=== PATIENT | male | born 1975 | race Caucasian/White ===

== ENCOUNTER 2017-02-28 04:06 | Emergency (ER) | payer OTHER ==
[~2017-02-28] VITALS: Ht 177.8 cm; Wt 86.0 kg
[2017-02-28 04:11] VITALS: Ht 177.8 cm; Wt 86.0 kg
--- NOTE | 2017-02-28 06:49 | ERD ---
ER Documentation Chief Complaint Date/Time DATE: 02/28/17 TIME: 06:40 Chief Complaint abscess right gluteal area notice since last night HPI 41-year-old otherwise healthy male presents the emergency department with complaints of redness and pain surrounding the skin of the right gluteal area. Patient also notes erythema and swelling at the nailbed of the left index finger. Patient states symptoms began 4 days ago and have gradually worsened. Patient notes a current 5 out of 10 constant sharp pain worse with pressure to the area. Patient states she has not attempted to treat his symptoms with any medication thus far. Patient states that he is attempted to soak and drain the purulent discharge from the fingernail but has been unsuccessful. Patient denies any fever or chills but notes he "did not feel well "last night. Patient denies any nausea, vomiting, abdominal pain, confusion, headache. Patient denies any history of IV drug use. ROS All systems reviewed and are negative except as per history of present illness. Medications Home Meds Active Scripts Trimethoprim-Sulfamethoxazole* (Bactrim*) 400-80 Mg Tab, 1 TAB PO BID, #20 TAB Prov:RACHEL LOBO PA-C 02/28/17 Cephalexin* (Keflex*) 500 Mg Capsule, 500 MG PO QID for 7 Days, CAP Prov:RACHEL LOBO PA-C 02/28/17 Ibuprofen* (Motrin*) 600 Mg Tab, 600 MG PO Q6, #30 TAB Prov:RACHEL LOBO PA-C 02/28/17 Hydrocodone/Acetaminophen ([place] 5-325 Tablet) 1 Each Tablet, 1 TAB PO Q6H Y for PAIN, #7 TAB Prov:RACHEL LOBO PA-C 02/28/17 Mupirocin* (Bactroban*) 2% -22 Gram Oint...g., 1 APPLIC TOP BID for 7 Days, EA Prov:RACHEL LOBO PA-C 02/28/17 Allergies Allergies: Coded Allergies: No Known Allergy (Unverified , 02/28/17) PMhx/Soc History of Surgery: Yes (gallbladder) Anesthesia Reaction: No Hx Miscellaneous Medical Probl: Yes (pancreatitis) Hx Alcohol Use: Yes (rarely) Hx Substance Use: Yes (marijuana occaisionally) Hx Tobacco Use: Yes (1/2 ppd) Smoking Status: Current every day smoker Physical Exam Vitals Vital Signs Date Time Temp Pulse Resp B/P Pulse Ox O2 Delivery O2 Flow Rate FiO2 02/28/17 04:11 100.3 105 20 132/73 98 Physical Exam Const: Well-developed, well-nourished, no acute distress Head: Atraumatic Eyes: Normal Conjunctiva ENT: Normal External Ears, Nose and Mouth. Neck: Full range of motion..~ No meningismus. Resp: Clear to auscultation bilaterally Cardio: Regular rate and rhythm, no murmurs Abd: Soft, non tender, non distended. Normal bowel sounds Skin: 4 cm area of induration and slight superficial erythema located on the right gluteal area. No drainage present. Slight tenderness to palpation. Marked erythema and mild swelling located on the left index nailbed with mild purulent drainage. 2 point discrimination present along radial and ulnar aspects of affected finger. Brisk capillary refill. Tissue warm and well perfused. No petechiae or rashes Back: No midline or flank tenderness Ext: No cyanosis, or edema Neur: Awake and alert Psych: Normal Mood and Affect Results 24 hrs Current Medications Medications (Trade) Dose Ordered Sig/Katie Route PRN Reason Start Time Stop Time Status Last Admin Dose Admin Acetaminophen (Tylenol Tab) 650 mg ONCE ONCE PO 02/28/17 07:00 02/28/17 07:01 DC 02/28/17 06:55 Procedures/MDM Abscess Incision and Drainage with irrigation by me: Location: Left index finger nailbed Anesthesia: none Technique: Aspirated with needle Packing: None Complications: Neurovascularly intact post procedure 48 hour wound check. Scar minimization instructions given. Patient's skin symptoms have stabilized while they have been evaluated in the department and are appropriate for outpatient care and work up. Exam and w/u not consistent w/ sepsis, deep space infection, or foreign body. Well-appearing otherwise healthy 41-year-old male presents to the emergency department complaining of redness and swelling of his skin at 2 different sites. Patient is nontoxic appearing and in no acute distress. Erythema and induration located along his gluteal area appears to be mild and there is no indication for incision and drainage at this time. Patient tolerated incision and drainage of perionychia of his index finger and was placed in simple dressing. Patient received Tylenol which lowered his initial temperature measured at 100.3F. Patient's blood pressure was normotensive. Heart rate rechecked prior to discharge and patient was non-tachycardic. At this time I have low suspicion for severe systemic infection, or sepsis. Patient denies any medical history. He will be placed on antibiotic therapy and instructed to return in 48 hours for wound check. Take Tylenol for fevers as needed. Based on patient's history of present illness and physical examination the decision was made to discharge. The patient was re-evaluated after ED treatment and stabilizing measures, and symptoms have improved. There is no evidence of life threatening injuries or illnesses at this time. On re-examination, patient resting in no distress, stable vital signs, reports feeling better and safe for discharge with outpatient follow up with PMD in 1-2 days. Patient given return precautions. Departure Diagnosis: Primary Impression: Abscess Additional Impressions: Paronychia Laterality: left Qualified Code: L03.012 - Paronychia, left Cellulitis Site of cellulitis: buttock Qualified Code: L03.317 - Cellulitis of buttock RACHEL LOBO PA-C Feb 28, 2017 06:49
[2017-02-28] MEDS ORDERED: ACETAMINOPHEN 325 MG TAB PO ONE (07:00)
[2017-02-28] MEDS ORDERED: BACTRIM PO (07:01)
[2017-02-28] MEDS ORDERED: IBUP-1542 PO (07:01)
[2017-02-28] MEDS ORDERED: HYDR-906 PO (07:01)
[2017-02-28] MEDS ORDERED: CEPH-443 PO (07:01)
[2017-02-28] MEDS ORDERED: MUPI22OI2 TOP (07:01)
== END 2017-02-28 07:12 | disposition home or self-care (01) ==
LOC: FTE 04:06
DX: L02.31 Cutaneous abscess of buttock (principal); L03.012 Cellulitis of left finger; L03.317 Cellulitis of buttock; F17.210 Nicotine dependence, cigarettes, uncomplicated
CPT/HCPCS: 20600; Z7610

== ENCOUNTER 2017-03-09 01:13 | Emergency (ER) | payer OTHER ==
[~2017-03-09] VITALS: Ht 185.4 cm; Wt 88.0 kg
[~2017-03-09 01:13] MED LIST: BACTRIM PO; CEPH-443 PO; HYDR-906 PO; IBUP-1542 PO; MUPI22OI2 TOP
[2017-03-09 01:37] VITALS: Ht 185.4 cm; Wt 88.0 kg
[2017-03-09] MEDS ORDERED: LIDOCAINE 1% (MDV) 20 ML INJ SC ONE (03:00)
[2017-03-09] MEDS ORDERED: HYDROCODONE/APAP (10/325) TAB PO ONE (05:00)
[2017-03-09] MEDS ORDERED: IBUP800T25 PO (05:01)
[2017-03-09] MEDS ORDERED: HYDR-902 PO (05:01)
[2017-03-09] MEDS ORDERED: CLIN-73 PO (05:01)
[2017-03-09 05:40] VITALS: BP 132/78; PULSE 88; RESP 20; TEMP 99
--- NOTE | 2017-03-09 05:43 | ERD ---
ER Documentation Chief Complaint Date/Time DATE: 03/09/17 TIME: 05:42 Chief Complaint Abscess to r cheek HPI 41-year-old male complaining of abscess on his right buttock times 9 days. Patient stated that he was seen here before, was given 2 antibiotics. He finished antibiotics. 2 days ago, he has noticed the area has become soft and squishy. Patient complaining of constant severe pain, as well as subjective fever. He took ibuprofen at home for pain, but did not help much. ROS All systems reviewed and are negative except as per history of present illness. Medications Home Meds Active Scripts Hydrocodone/Acetaminophen ([place] 10-325 Tablet) 1 Each Tablet, 1 TAB PO Q6H Y for SEVERE PAIN LEVEL 7-10, #7 TAB Prov:JAYME BURKS [facility] [employer] SERVICE WORKER 03/09/17 Ibuprofen* (Motrin*) 800 Mg Tab, 800 MG PO Q6H Y for PAIN AND OR ELEVATED TEMP, #30 TAB Prov:JAYME BURKS NP 03/09/17 Clindamycin Hcl* (Clindamycin Hcl*) 300 Mg Capsule, 300 MG PO TID for 10 Days, CAP Prov:JAYME BURKS [facility] [employer] SERVICE WORKER 03/09/17 Trimethoprim-Sulfamethoxazole* (Bactrim*) 400-80 Mg Tab, 1 TAB PO BID, #20 TAB Prov:RACHEL LOBO PA-C 02/28/17 Cephalexin* (Keflex*) 500 Mg Capsule, 500 MG PO QID for 7 Days, CAP Prov:RACHEL LOBO PA-C 02/28/17 Ibuprofen* (Motrin*) 600 Mg Tab, 600 MG PO Q6, #30 TAB Prov:RACHEL LOBOC 02/28/17 Hydrocodone/Acetaminophen ([place] 5-325 Tablet) 1 Each Tablet, 1 TAB PO Q6H Y for PAIN, #7 TAB Prov:RACHEL LOBO PA-C 02/28/17 Mupirocin* (Bactroban*) 2% -22 Gram Oint...g., 1 APPLIC TOP BID for 7 Days, EA Prov:RACHEL LOBO-C 02/28/17 Allergies Allergies: Coded Allergies: No Known Allergy (Unverified , 02/28/17) PMhx/Soc History of Surgery: Yes (gallbladder) Anesthesia Reaction: No Hx Miscellaneous Medical Probl: Yes (pancreatitis) Hx Alcohol Use: Yes (rarely) Hx Substance Use: Yes (marijuana occaisionally) Hx Tobacco Use: No (quit) Smoking Status: Former smoker Physical Exam Vitals Vital Signs Date Time Temp Pulse Resp B/P Pulse Ox O2 Delivery O2 Flow Rate FiO2 03/09/17 01:37 100.2 91 20 125/85 99 Physical Exam General impression: Well-developed, well-nourished. Alert, oriented, in no acute distress Head: Normocephalic, atraumatic. Eyes: PERRL, EOM normal. Sclerae are normal. Conjunctiva not injected. Neck: Supple, nontender. No lymphadenopathy. No nuchal rigidity. Respiration: Normal respiratory effort. Lungs clear to auscultate bilaterally. No wheezes, rales or rhonchi. Cardiovascular: Regular rate and rhythm. No murmurs or extra heart sounds. Abdomen: Abdomen normal to inspection. Nontender. No masses or organomegaly. Bowel sounds normal. Back: Normal to inspection. No midline spine tenderness. No CVA tenderness. Extremities: Extremities normal to inspection, nontender. ROM normal. Neuro: Mental status normal, speech normal. 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 Skin: Normal turgor. Approximately 20 x 60 cm area of induration wheeze irregular border noted on the right buttock, with large area of fluctuance. Tender to palpation. Psych: Normal mood and affect. Results 24 hrs Current Medications Medications (Trade) Dose Ordered Sig/Katie Route PRN Reason Start Time Stop Time Status Last Admin Dose Admin Lidocaine (Xylocaine 1% (Mdv) 20 ml) 20 ml ONCE ONCE SC 03/09/17 03:00 03/09/17 03:01 DC Acetaminophen/ Hydrocodone Bitart ([place] (10/325)) 1 tab ONCE ONCE PO 03/09/17 05:00 03/09/17 05:01 DC 03/09/17 04:38 Procedures/MDM Procedure note: Incision and Drainage Verbal consent obtained for incision and drainage of patient's abscess. The area was prepped with Betadine. Lidocaine 1% was infiltrated for local anesthesia. After appropriate anesthesia, incision was made using #11 blade. Approximately 500 cc of purulent drainage was removed from the abscess. The abscess was probed for loculation. It was then irrigated with 120 ml of NS solution. Iodoform 1/2" packing tape approximately 7 feet long was inserted into the abscess. The wound was then cleaned and dressed. Patient tolerated procedure well. Well-appearing 41-year-old male presented ED with large abscess on his right buttock. The abscess has grown in size since the previous visit 9 days ago. Patient had finished 1 course of Keflex and Bactrim DS as prescribed. I suspect the reason that the abscess had grown may be due to a combination of antibiotic resistance and patient did not seek timely care to drain the abscess. Patient had a low-grade fever in the ED, he is given [place] 10/325 for pain and fever. I will prescribe him a course of clindamycin, and have him return here 2 days for follow-up wound check. Patient appears well, stable for discharge and outpatient management. Medical decision making shared with patient and family. Education provided to patient and family. Patient and family expressed understanding of the plan. Medications on discharge: Ibuprofen, [place], clindamycin. Follow-up: Return to ED in 2 days for wound check and dressing change. Departure Diagnosis: Primary Impression: Abscess Condition: Good Patient Instructions: Abscess, Incision And Drainage Referrals: [facility] YOU HAVE RECEIVED A MEDICAL SCREENING EXAM AND THE RESULTS INDICATE THAT YOU DO NOT HAVE A CONDITION THAT REQUIRES URGENT TREATMENT IN THE EMERGENCY DEPARTMENT. FURTHER EVALUATION AND TREATMENT OF YOUR CONDITION CAN WAIT UNTIL YOU ARE SEEN IN YOUR DOCTORS OFFICE WITHIN THE NEXT 1-2 DAYS. IT IS YOUR RESPONSIBILITY TO MAKE AN APPOINTMENT FOR FOLOW-UP CARE. IF YOU HAVE A PRIMARY DOCTOR --you should call your primary doctor and schedule an appointment IF YOU DO NOT HAVE A PRIMARY DOCTOR YOU CAN CALL OUR PHYSICIAN REFERRAL HOTLINE AT IF YOU CAN NOT AFFORD TO SEE A PHYSICIAN YOU CAN CHOSE FROM THE FOLLOWING [facility] [address] [place] [facility] [address] [facility] [address] [facility] [address] [facility] [address] [facility]. [facility] [address] Additional Instructions: Return to this facility in 2 DAYS for a follow-up exam.Return sooner if your condition worsens. JAYME BURKS NP Mar 09, 2017 05:43
== END 2017-03-09 05:45 | disposition home or self-care (01) ==
LOC: FTE 01:13
DX: L02.31 Cutaneous abscess of buttock (principal); Z87.891 Personal history of nicotine dependence
CPT/HCPCS: 10061; Z7502; Z7610

== ENCOUNTER 2017-03-12 03:55 | Emergency (ER) | payer OTHER ==
[~2017-03-12] VITALS: Ht 182.9 cm; Wt 90.0 kg
[~2017-03-12 03:55] MED LIST changes: +CLIN-73 PO; +HYDR-902 PO; +IBUP800T25 PO
[2017-03-12 03:58] VITALS: Ht 182.9 cm; Wt 90.0 kg
[2017-03-12 06:48] VITALS: BP 119/88; PULSE 65; RESP 20
--- NOTE | 2017-03-12 07:48 | ERD ---
ER Documentation Chief Complaint Date/Time DATE: 03/12/17 TIME: 07:44 Chief Complaint wound check for abscess on left buttock HPI Patient is a 41-year-old male with no medical problems who presents with a right buttock abscess. He had incision and drainage performed recently. He has had this for about 1.5 weeks. He is taking antibiotics. He said that the area is painful and slightly hard around the area of the incision and drainage. He is not diabetic. He smokes occasionally. ROS All systems reviewed and are negative except as per history of present illness. Medications Home Meds Active Scripts Hydrocodone/Acetaminophen ([place] 10-325 Tablet) 1 Each Tablet, 1 TAB PO Q6H Y for SEVERE PAIN LEVEL 7-10, #7 TAB Prov:JAYME BURKS CUSTOMER CONTACT SALES ASSOCIATE 03/09/17 Ibuprofen* (Motrin*) 800 Mg Tab, 800 MG PO Q6H Y for PAIN AND OR ELEVATED TEMP, #30 TAB Prov:JAYME BURKS NP 03/09/17 Clindamycin Hcl* (Clindamycin Hcl*) 300 Mg Capsule, 300 MG PO TID for 10 Days, CAP Prov:JAYME BURKS NP 03/09/17 Trimethoprim-Sulfamethoxazole* (Bactrim*) 400-80 Mg Tab, 1 TAB PO BID, #20 TAB Prov:RACHEL LOBO PA-C 02/28/17 Cephalexin* (Keflex*) 500 Mg Capsule, 500 MG PO QID for 7 Days, CAP Prov:RACHEL LOBO-C 02/28/17 Ibuprofen* (Motrin*) 600 Mg Tab, 600 MG PO Q6, #30 TAB Prov:RACHEL LOBO PA-C 02/28/17 Hydrocodone/Acetaminophen ([place] 5-325 Tablet) 1 Each Tablet, 1 TAB PO Q6H Y for PAIN, #7 TAB Prov:RACHEL LOBO PA-C 02/28/17 Mupirocin* (Bactroban*) 2% -22 Gram Oint...g., 1 APPLIC TOP BID for 7 Days, EA Prov:RACHEL LOBO-C 02/28/17 Allergies Allergies: Coded Allergies: No Known Allergy (Unverified , 03/12/17) PMhx/Soc Medical and Surgical Hx: pt denies Medical Hx, pt denies Surgical Hx History of Surgery: Yes (gallbladder) Anesthesia Reaction: No Hx Miscellaneous Medical Probl: Yes (pancreatitis) Hx Alcohol Use: Yes (rarely) Hx Substance Use: Yes (marijuana occaisionally) Hx Tobacco Use: No (quit) Smoking Status: Never smoker FmHx Family History: No diabetes Physical Exam Vitals Vital Signs Date Time Temp Pulse Resp B/P Pulse Ox O2 Delivery O2 Flow Rate FiO2 03/12/17 06:48 65 20 119/88 98 Room Air 03/12/17 03:58 98.2 125 20 127/97 97 Physical Exam Const: No acute distress Head: Atraumatic Eyes: Normal Conjunctiva ENT: Normal External Ears, Nose and Mouth. Neck: Full range of motion..~ No meningismus. Resp: Clear to auscultation bilaterally Cardio: Regular rate and rhythm, no murmurs Abd: Soft, non tender, non distended. Normal bowel sounds Skin: Incision and drainage to the right buttock without signs of surrounding erythema at this time, mild induration Back: No midline or flank tenderness Ext: No cyanosis, or edema Neur: Awake and alert Psych: Normal Mood and Affect Procedures/MDM Packing was removed at the bedside. Patient is a 41-year-old male presents for a wound check. I removed the packing. The patient is well-appearing otherwise. I doubt systemic infection. He is afebrile. The patient will be discharged home and can return for any worsening symptoms. I believe outpatient management at this time. The patient will need to follow-up with a primary doctor within 1 week and can return if symptoms worsen. Departure Diagnosis: Primary Impression: Encounter for wound re-check Condition: Fair Patient Instructions: Wound Care Referrals: [facility] YOU HAVE RECEIVED A MEDICAL SCREENING EXAM AND THE RESULTS INDICATE THAT YOU DO NOT HAVE A CONDITION THAT REQUIRES URGENT TREATMENT IN THE EMERGENCY DEPARTMENT. FURTHER EVALUATION AND TREATMENT OF YOUR CONDITION CAN WAIT UNTIL YOU ARE SEEN IN YOUR DOCTORS OFFICE WITHIN THE NEXT 1-2 DAYS. IT IS YOUR RESPONSIBILITY TO MAKE AN APPOINTMENT FOR FOLOW-UP CARE. IF YOU HAVE A PRIMARY DOCTOR --you should call your primary doctor and schedule an appointment IF YOU DO NOT HAVE A PRIMARY DOCTOR YOU CAN CALL OUR PHYSICIAN REFERRAL HOTLINE AT IF YOU CAN NOT AFFORD TO SEE A PHYSICIAN YOU CAN CHOSE FROM THE FOLLOWING [facility] [address] [facility] [address] [facility] [facility] [address] [facility] [address] [facility]. [facility] [address] [facility] [facility] [address] Additional Instructions: Call your primary care doctor TOMORROW for an appointment during the next 1 WEEK.Tell the litigation secretary that you were referred from this facility.See the doctor sooner or return here if your condition worsens before your appointment time. MAMTA JARRETT MD March 12, 2017 07:47
== END 2017-03-12 07:01 | disposition home or self-care (01) ==
LOC: FTE 03:55
DX: Z48.01 Encounter for change or removal of surgical wound dressing (principal)
CPT/HCPCS: 99281